=== PATIENT | female | born 1950 | race Caucasian/White ===

== ENCOUNTER 2018-06-30 09:00 | Outpatient (RCR) | payer MEDICARE, MEDICAID ==
--- NOTE | 2018-06-03 14:00 | NUR ---
Pt. in for IOP and Treatment Team. Pt. is clean and neat. Alert and oriented times 3. Affect is mildly blunted. Pt. states "this is a difficult time of the davida due to anniversary, birthday and of . Pt. states the program is so much help and support. Pt. states she is having "trouble sleeping again". Pt. is encouraged to take her melatonin nightly instead of PRN by Torsten Garcia APRN. Pt. denies any suicidal ideations. Pt. states she is compliant with her medications. Pt. reports no changes in her medications. Pt. is to continue with her current treatment plan. Pt. is attending IOP 2 times a week with monthly 1:1. Will follow up in one month. Treatment team is concluded.
[2018-06-14 13:04] VITALS: BP 120/71
[~2018-06-30 09:00] MED LIST: ALCORTIN A TOP; ALEVE220 M2 PO; ANTIHISTAMIN25 MG PO; AQUAPHOR EX; CENTRU3 PO; CENTRUM ADULTS1 TAB PO; CEPHALEXIN500 M1 PO; EXTINA2 % EX; FLUOXETINE10 MG PO; FLUOXETINE20 MG PO; GLUCOSAMINE PO; LORATADINE10 M3 PO; MIGRAINE RELIEF; MUPIROCIN21; ST JOHN WORT300 MG PO; TRIAMCINOLON0.11 EX; TRIAMCINOLONE A0.12 EX; [UNRECOGNIZED DRUG - CODE] EX; [UNRECOGNIZED DRUG - OTHER] PO
== END 2018-06-30 23:59 | disposition still patient (30) ==
LOC: SLIP3 09:00
PROVIDERS: ATTEND Specialist
DX: F43.21 Adjustment disorder with depressed mood (principal)

== ENCOUNTER 2022-08-10 08:29 | Emergency (ER) | payer MEDICARE, MEDICAID ==
[~2022-08-10] VITALS: Ht 162.6 cm; Wt 86.0 kg
[~2022-08-10 08:29] MED LIST changes: +ABILIFY MYCITE2 MG PO; +BIOTIN MAXI10000 MC1 PO; +BIOTIN1000 MCG PO; +CALCIUM 600600 M1 PO; +FISH OIL1000 MG PO; +FLUOXETINE40 MG PO; +HYDROCORTISONE2.5 % EX; +KETOCONAZOLE2 % EX; +MECLIZINE25 MG PO; +MUPIROCIN2 %; +MUPIROCIN2 % EX; +PREVAGEN EXTRA20 MG PO; +PREVAGEN10 MG PO; +PROZAC10 MG PO; +PROZAC20 M1 PO; +PROZAC40 MG PO; +VITAMIN D31000 UNI1 PO; +WOMENS MULTIVIT1 TAB PO; +XYZAL ALLERGY 245 MG PO; +[UNRECOGNIZED DRUG - OTHER] PO
[2022-08-10 08:53] VITALS: BP 125/59
[2022-08-10 09:01] VITALS: BP 122/71
[2022-08-10] MEDS ORDERED: AMOX/K CLAV875 M1 PO (09:11)
[2022-08-10 09:20] VITALS: BP 122/71
== END 2022-08-10 09:26 | disposition home or self-care (01) ==
LOC: ED 08:29
DX: K08.89 Other specified disorders of teeth and supporting structures (principal)